=== PATIENT | male | born 1995 | race Caucasian/White ===

== ENCOUNTER 2021-05-04 09:58 | Emergency (ER) | payer BC, SELFPAY ==
[2021-05-04 10:09] VITALS: BP 109/68; PULSE 78; RESP 20; TEMP 36.2; O2SAT 98
--- NOTE | 2021-05-04 12:20 | ED.GENADULT ---
HPI - General Adult General Chief complaint: Recheck/Abnormal Lab/Rx Stated complaint: STD test Time Seen by Provider: 05/04/21 11:08 Source: patient Mode of arrival: ambulatory Limitations: no limitations History of Present Illness HPI narrative: Patient presents requesting a herpes antibody test. He states that his girlfriend is demanding that he have a test performed. He states he had a positive antibody test in the past. He has never had an outbreak. Denies urinary symptoms, urethral discharge, genital sores and testicular pain. He has had several gonorrhea and chlamydia test recently which were all negative. He is already sexually active with his girlfriend, sometimes using condoms. She is asymptomatic. Review of Systems Review of Systems: CONSTITUTIONAL: Denies fever, chills, or sweats. EYES: Denies visual changes, redness, or discharge. ENT: Denies rhinorrhea, congestion, sore throat, or otalgia. CARDIOVASCULAR: Denies chest pain, palpitations, or edema. RESPIRATORY: Denies cough or dyspnea. GASTROINTESTINAL: Denies abdominal pain, nausea, vomiting, or diarrhea. GENITOURINARY: Denies dysuria or hematuria. SKIN: Denies rash or itching. MUSCULOSKELETAL: Denies back pain, joint pain, or myalgia. NEUROLOGIC: Denies headache, numbness, dizziness, or weakness. PSYCHIATRIC: Denies anxiety or depression. [facility] Past Medical History Medical History (Updated 05/04/21 @ 12:30 by Romulo Herman, [facility], ) No pertinent past medical history Surgical History Surgical History No pertinent past surgical history Family History Family History Mother No pertinent past medical history Social History Social History (Updated 05/04/21 @ 12:28 by Romulo Herman, [facility], ) Smoking status: Never smoker Substance use: never Gender identity (if verbalized by the patient): Male Sexual Orientation (if Verbalized by the Patient): Straight or Heterosexual Spiritual care concerns: No Exam Narrative: GENERAL: Well-appearing, well-nourished, and in no acute distress. HEAD: Normocephalic, atraumatic. EYES: PERRLA and EOMI. ENT: Nares clear, no rhinorrhea or epistaxis. Mucous membranes moist. Oropharynx without tonsillar hypertrophy exudate or other lesions. Bilateral TMs pearly [place] nonbulging NECK: Supple. No adenopathy or masses. No carotid bruits or JVD CHEST: Clear to auscultation. No respiratory distress. No wheezes rales or rhonchi HEART: Regular rate and rhythm. No murmur heard. Normal peripheral pulses. ABDOMEN: Soft, nontender, nondistended, normal active bowel sounds. EXTREMITIES: Normal range of motion. No edema. SKIN: Warm, dry, no rash. : No external genital lesions. No inguinal lymphadenopathy. No scrotal swelling. No testicular masses or tenderness. No urethral drainage. NEURO: No focal deficits. Alert and oriented x3. PSYCH: Normal mood and affect. Course Course Emergency Course: Is a 25-year-old male who presented requesting a herpes antibody test. He is already had a positive antibody test in the past. Informed him that this would likely be of little clinical utility as a positive result would not necessarily mean he has active herpes or will ever have an outbreak. Furthermore, positive test in the past would likely yield similar results at this time. She denies any symptoms whatsoever. Advise follow-up outpatient for further evaluation treatment return for worsening symptoms patient agreed with plan of care. Vital Signs Vital signs: Vital Signs Temperature 36.2 C L 05/04/21 10:09 Pulse Rate 78 05/04/21 10:09 Respiratory Rate 20 05/04/21 10:09 Blood Pressure 109/68 05/04/21 10:09 Pulse Oximetry 98 05/04/21 10:09 Temperature 36.2 C L 05/04/21 10:09 Pulse Rate 78 05/04/21 10:09 Respiratory Rate 20 05/04/21 10:09 Blood Pressure 109/68 05/04/21 10:0
== END 2021-05-04 12:36 | disposition home or self-care (01) ==
PROVIDERS: Emergency Provider Nurse Practitioner
DX: Z20.2 Contact with and (suspected) exposure to infections with a predominantly sexual mode of transmission (principal)
CPT/HCPCS: 99281